=== PATIENT | male | born 1995 | race Caucasian/White ===

== ENCOUNTER 2018-05-26 16:07 | Emergency (ER) | payer MEDICAID ==
[2018-05-26] MEDS: LIDOCAINE 2% (MDV) 20 ML INJ INJ (17:57)
[2018-05-26] MEDS: DIPHTH/TET/ACEL PERTUSS (ADULT) 0.5 ML VIAL IM* (18:42)
== END 2018-05-26 19:33 | disposition home or self-care (01) ==
LOC: FTE 16:07
DX: S21.212A Laceration without foreign body of left back wall of thorax without penetration into thoracic cavity, initial encounter (principal); W22.8XXA Striking against or struck by other objects, initial encounter; Y92.9 Unspecified place or not applicable; Z23 Encounter for immunization
CPT/HCPCS: 12002; 90471; 90715; 99283-25

== ENCOUNTER 2018-05-29 13:14 | Emergency (ER) | payer MEDICAID | END 2018-05-29 13:54 | disposition home or self-care (01) | LOC: FTE 13:14 | DX: Z48.01 Encounter for change or removal of surgical wound dressing (principal) | CPT/HCPCS: 99282; Z7502 ==

== ENCOUNTER 2018-06-02 10:39 | Emergency (ER) | payer MEDICAID | END 2018-06-02 11:45 | disposition home or self-care (01) | LOC: FTE 10:39 | DX: Z48.02 Encounter for removal of sutures (principal) | CPT/HCPCS: 99281; Z7502 ==